=== PATIENT | female | born 1965 | race Caucasian/White ===

== ENCOUNTER → 2019-11-16 09:53 | Outpatient (CLI) | payer BC, SELFPAY ==
[2019-11-16 12:27] LABS: Hematocrit 42.8 % (37-47); Hemoglobin 13.3 g/dL (12.0-15.0); Mean Corp Hgb Conc 31.1 g/dL (32-36); Mean Corpuscular Hgb 28.3 pg (27.0-32.0); Mean Corpuscular Volume 91.1 fL (81-99); Mean Platelet Vol. 9.4 fl (6.2-12.0); Platelet Count 270 K/mm3 (150-450); RBC Distribution Width CV 12.5 % (11.6-14.6); RBC Distribution Width SD 41.9 fl (35.1-43.9); White Blood Count 4.6 K/mm3 (4.4-11.0)
[2019-11-16 12:46] LABS: ALB/GLOB Ratio 1.2 RATIO (0.9-2.4); AST(SGOT) 21 U/L (15-37); Alanine Aminotransfer ALT/SGPT 30 U/L (13-56); Alkaline Phosphatase 88 U/L (45-117); Anion Gap 4 (5-15); BUN 18 mg/dL (7-18); BUN/Creat Ratio 16.7 RATIO (10-20); Calcium,Total 9.1 mg/dL (8.5-10.1); Chloride 106 mmol/L (98-107); Creatinine, Serum 1.08 mg/dL (0.55-1.02); EST Glomerular Filtration Rate 56 mL/min (>60); Est Glom Filt Rate - Afr Amer 67 mL/min (>60); Globulin 3.4 g/dL (2.2-4.2); Glucose 84 mg/dL (74-106); Protein, Total 7.4 g/dL (6.4-8.2); Sodium Level 141 mmol/L (136-145)
[2019-11-16 12:59] LABS: PTHIN 74.8 pg/mL (18.4-80.1)
[2019-11-16 13:00] LABS: Microalbumin,Random Urine 6.2 mg/L (NO RANGE EST.); Microalbumin:Creatinine Ratio 7.3 mg/g CRE (<30 mg/g CRE)
== END ==
PROVIDERS: Visit Provider Internal Medicine Nephrology
DX: N18.3 Chronic kidney disease, stage 3 (moderate) (principal)
CPT/HCPCS: 36415; 80053; 82043; 82570; 83970; 85027

== ENCOUNTER → 2019-11-28 07:32 | Outpatient (CLI) | payer BC, SELFPAY ==
[2019-11-28 08:40] LABS: 24 Hour Urine Protein 102.6 mg/24HR (<150 MG/24HR); 24HR. UA Prot. Total Volume 1350 mL; 24HR. Urine Creatinine 1.65 g/24 HR (0.70-1.90); Urine Protein (24 Hour) 7.6 mg/dL (<11.9)
[2019-11-28 08:51] LABS: Albumin, Serum 3.7 g/dL (3.2-5.0); BUN 24 mg/dL (7-18); BUN/Creat Ratio 16.2 RATIO (10-20); Calcium,Total 8.7 mg/dL (8.5-10.1); Chloride 107 mmol/L (98-107); Creatinine, Serum 1.48 mg/dL (0.55-1.02); EST Glomerular Filtration Rate 39 mL/min (>60); Est Glom Filt Rate - Afr Amer 47 mL/min (>60); Glucose 99 mg/dL (74-106); Potassium 3.8 mmol/L (3.5-5.1); Sodium Level 139 mmol/L (136-145)
== END ==
LOC: LABSPEC 07:36 → LAB 07:46
PROVIDERS: PCP Family Medicine; Referring Provider Internal Medicine Nephrology; Visit Provider Internal Medicine Nephrology
DX: N18.3 Chronic kidney disease, stage 3 (moderate) (principal)
CPT/HCPCS: 80069; 81050; 82570; 84156

== ENCOUNTER 2020-06-28 09:17 | Outpatient (RCR) | payer BC, SELFPAY | END 2020-08-07 23:59 | LOC: IMMUN 09:17 | PROVIDERS: PCP Family Medicine; Referring Provider Family Medicine; Visit Provider Family Medicine | DX: Z23 Encounter for immunization (principal) | CPT/HCPCS: 0001A; 0002A; 91300 ==

== ENCOUNTER 2021-03-19 08:48 | Outpatient (CLI) | payer BC, SELFPAY ==
[2021-03-19 09:28] LABS: Hematocrit 43.9 % (37-47); Hemoglobin 13.6 g/dL (12.0-15.0); Mean Corpuscular Hgb 28.8 pg (27.0-32.0); Mean Platelet Vol. 9.2 fl (6.2-12.0); Platelet Count 286 K/mm3 (150-450); RBC Distribution Width CV 12.5 % (11.6-14.6); Red Blood Count 4.72 M/mm3 (4.2-5.4); White Blood Count 4.9 K/mm3 (4.4-11.0)
[2021-03-19 09:35] LABS: Protein, Urine (Random) 7.9 mg/dL (<11.9); Protein:Creat Ratio 88 mg/g CRE (0-200)
[2021-03-19 09:53] LABS: Albumin, Serum 4.1 g/dL (3.2-5.0); BUN 15 mg/dL (7-18); BUN/Creat Ratio 14.9 RATIO (10-20); Calcium,Total 9.3 mg/dL (8.5-10.1); Chloride 106 mmol/L (98-107); Creatinine, Serum 1.01 mg/dL (0.55-1.02); EST Glomerular Filtration Rate 60 mL/min (>60); Est Glom Filt Rate - Afr Amer 73 mL/min (>60); Glucose 94 mg/dL (74-106); Potassium 4.2 mmol/L (3.5-5.1); Sodium Level 141 mmol/L (136-145)
== END 2021-03-19 23:59 | disposition short-term general hospital (02) ==
LOC: LAB 08:52
PROVIDERS: PCP Family Medicine; Referring Provider Internal Medicine Nephrology; Visit Provider Internal Medicine Nephrology
DX: N18.2 Chronic kidney disease, stage 2 (mild) (principal); Z52.4 Kidney donor
CPT/HCPCS: 36415; 80069; 82570; 84156; 85027

== ENCOUNTER 2024-06-21 23:15 | Emergency (ER) | payer BC, SELFPAY ==
[2024-06-21 23:16] VITALS: BP 177/100; PULSE 82; RESP 18; TEMP 36.6; O2SAT 97; BMI 32.1
--- NOTE | 2024-06-21 23:39 | RAD_ITS ---
PROCEDURE: CHEST PA AND LATERAL 06/21/2024 REASON FOR EXAM: CHEST PAIN TECHNIQUE: Frontal and lateral views of the chest. COMPARISON: None available FINDINGS: The lungs are clear. Pulmonary vascularity appears within limits. No pneumothorax or pleural effusion. The cardiac and mediastinal contours appear within limits. Visualized osseous structures appear within limits. Surgical clips to the left of the spine left upper quadrant. RAD/Chest PA and Lateral IMPRESSION: No evidence of acute disease. Reading Location: [id number]
[2024-06-21] MEDS: Famotidine 200 MG/20 ML MDV 20 MG in 0.9% Normal Saline (Pres. free 8 ML 300 MG IV (23:55)
[2024-06-21] MEDS: Lidocaine 2% Viscous15 ML UDC 15 ML PO (23:56)
[2024-06-21] MEDS: Mag Hydrox/Al Hydrox/Simeth 30 ML UDC PO (23:56)
[2024-06-21] MEDS: 0.9% Normal Saline (1000mL) 1,000 ML 999 ML IV (23:57)
[2024-06-22 00:04] LABS: AST(SGOT) 27 U/L (<=31); Alanine Aminotransfer ALT/SGPT 20 U/L (<=34); Albumin, Serum 4.2 g/dL (3.4-4.8); Alkaline Phosphatase 99 U/L (35-104); Anion Gap 11 (5-15); BUN 17 mg/dL (4-19); BUN/Creat Ratio 15.6 RATIO (10-20); Bilirubin, Direct 0.14 mg/dL (0.00-0.30); Calcium,Total 9.3 mg/dL (7.6-11.0); Carbon Dioxide 24.4 mmol/L (21.0-32.0); Chloride 107 mmol/L (98-108); Creatinine, Serum 1.08 mg/dL (0.70-1.20); EST Glomerular Filtration Rate 59 (>60); Estimated Creatinine Clearance 58.89 ml/min (50-250); Globulin 3.1 g/dL (2.2-4.2); Glucose 107 mg/dL (70-99); Lipase 53 U/L (13-75); Magnesium 2.2 mg/dL (1.5-2.2); Potassium 3.9 mmol/L (3.3-5.1); Protein, Total 7.3 g/dL (5.9-8.4); Sodium Level 142 mmol/L (133-145); Total Bilirubin 0.36 mg/dL (0.00-1.30); Troponin T High Sensitivity 11 ng/L (<=14)
[2024-06-22 00:15] VITALS: BP 169/87; PULSE 62; RESP 14; O2SAT 99
[2024-06-22 00:15] LABS: Absolute Lymphocyte Count 1.33 X10^3/uL (0.83-4.51); Absolute Neutrophil Count 4.7 X10^3/uL (2.0-7.7); Basophil# 0.04 X10^3/uL; Basophil% 0.6 % (0-1); Eosinophil# 0.22 X10^3/uL; Eosinophils% 3.3 % (0-5); Hematocrit 46.2 % (37-47); Hemoglobin 15.2 g/dL (12.0-15.0); Lymphocyte # 1.33 X10^3/ul (0.83-4.51); Mean Corp Hgb Conc 32.9 g/dL (32-36); Mean Corpuscular Hgb 29.7 pg (27.0-32.0); Mean Corpuscular Volume 90.4 fL (81-99); Mean Platelet Vol. 9.2 fl (6.2-12.0); Monocyte# 0.34 X10^3/uL; Monocyte% 5.1 % (0-10); NRBC Flagged by Analyzer 0 % (0-5); Neutrophil % 70.8 % (47-70); Platelet Count 243 K/mm3 (150-450); RBC Distribution Width CV 12.9 % (11.6-14.6); RBC Distribution Width SD 43.2 fl (35.1-43.9); Red Blood Count 5.11 M/mm3 (4.2-5.4); White Blood Count 6.6 K/mm3 (4.4-11.0)
[2024-06-22 01:00] VITALS: BP 134/82; PULSE 62; RESP 14
[2024-06-22 02:00] VITALS: BP 141/76; PULSE 59; RESP 11; O2SAT 98
[2024-06-22 02:17] LABS: Troponin T High Sens 2 HR 14 ng/L (<=14)
--- NOTE | 2024-06-22 02:34 | EDS_ITS ---
HPI History of Present Illness Chief Complaint: Chest Pain Informant: patient and spouse/S.O. Narrative Narrative: Patient is a 58-year-old female who reports past medical history of GERD. She states that for the last few days she been eating foods that she does not normally do because of the and also states she forgot to take her acid reflux medication. She states around 630 this evening while she was at dinner she developed upper abdominal/lower chest pain. She states that the pain was more of a burning sensation but then radiated up into her chest and was described as pressure. She states with this she felt dizzy and slightly short of breath. She reports symptoms did spontaneously improve but she had concerned that it could have been a cardiac event and not due to her acid reflux as symptoms did not resolve shortly after taking her normal medication. Therefore with concern for cardiac event she presents for evaluation [facility] Allergy/AdvReac Type Severity Reaction Status Date / Time aspirin Allergy Shortness Verified 06/21/24 23:16 of breath nut - unspecified (nuts) Allergy Abd Verified 06/21/24 23:16 cramps/diarrhea Social History Smoking Status: Never smoker ROS ROS ED Constitutional Constitutional ED: Denies chills or fever(s) Eyes Eyes: Denies change in vision ENT ENT ED: Denies sore throat Cardiovascular Cardiovascular: Reports chest pain and palpitations; Denies racing heartbeat Respiratory/Chest Respiratory/Chest: Denies cough or dyspnea Gastrointestinal Gastrointestinal: Reports abdominal pain and nausea; Denies diarrhea or vomiting Genitourinary Genitourinary ED: Denies dysuria Musculoskeletal Musculoskeletal: Denies back pain Integumentary Denies rash Neurologic Neurologic: Denies headache(s) Hematologic/Lymphatic Hematologic/Lymphatic: Denies easy bleeding or easy bruising EXAM Physical Exam Const Vital Signs: 06/21/24 23:16 06/21/24 23:37 06/22/24 00:15 Temperature 97.9 F Temperature Source Temporal Pulse Rate 82 62 Respiratory Rate 18 14 Respiratory Effort Normal Blood Pressure 177/100 H 169/87 H Blood Pressure Mean 125 114 Pulse Ox 97 99 Oxygen Delivery Method Room Air Room Air 06/22/24 01:00 06/22/24 02:00 06/22/24 02:40 Temperature 98.3 F Temperature Source Pulse Rate 62 59 L 62 Respiratory Rate 14 11 L 12 Respiratory Effort Blood Pressure 134/82 H 141/76 H 141/76 H Blood Pressure Mean 99 97 97 Pulse Ox 98 100 Oxygen Delivery Method Room Air Room Air Positive well nourished and well developed General Appearance ED: well developed; Negative for pallor HEENT HEENT Narrative: Normocephalic atraumatic Eyes PERRL and EOMs intact bilaterally General Eye ED: Negative for scleral icterus Neck supple and no JVD Neck Narrative: No nuchal rigidity or meningeal signs Chest Wall palpation of chest normal Chest Narrative: No bony deformity or subcutaneous emphysema noted No reproducible pain with palpation Resp normal respiratory effort and clear to auscultation bilaterally Cardio regular rate and regular rhythm Rate: other Other Details: Heart is regular rate and rhythm with occasional ectopic beat noted Radial and carotid pulses are equal and symmetric GI non-distended and no masses GI Narrative: Abdomen is soft and nondistended with normal active bowel sounds. Patient has mild pain with palpation in the midepigastric region without voluntary guarding or rigidity or pulsatile mass. Negative Morales sign. Auscultation: normoactive bowel sounds Palpation: soft Extremity normal to inspection Extremity Narrative: No asymmetric edema no pitting edema negative Homans' sign bilaterally Neuro oriented x3, CN's II-XII intact bilaterally and no sensory deficits noted Sensorium / Orientation: alert Motor Exam: strength 5/5 throughout Psych mental status grossly normal Skin no rashes or lesions noted General Skin Exam: Negative for jaundice or pallor MDM MDM MDM Narrative Medical decision making narrative: Patient arrived to the ER hypertensive otherwise with stable vitals. She reported upper abdominal/lower chest discomfort around 630 this evening which has spontaneously improved. Differential diagnosis is for ACS versus cardiac dysrhythmia versus pancreatitis versus biliary colic versus acute cholecystitis versus gastritis. EKG was obtained secondary to concern for ACS and revealed an occasional PVC but otherwise no signs of ischemia or cardiac dysrhythmia. Chest x-ray revealed no acute lung pathology. Initial troponin was 11 delta increased by 3-14 which is not clinically significant and classifies as a rule out criteria. Further blood work revealed no signs of pancreatitis as her lipase was normal and concern for biliary colic/acute cholecystitis is no as liver enzymes are normal and she does not have leukocytosis. On reevaluation she has had resolution of her symptoms and is pain-free. Therefore at this time with negative cardiac enzymes and EKG showing no ischemic changes as well as improvement of symptoms I do not feel there is need for further evaluation in the ER and she is otherwise safe for discharge History & Record Review Discussion w/independent historian: Patient and Significant other Lab Data Attestation: I reviewed the patient's lab results. Labs: Laboratory Results - last 24 hr 06/21/24 06/22/24 23:28 01:51 WBC 6.6 RBC 5.11 Hgb 15.2 H Hct 46.2 MCV 90.4 MCH 29.7 MCHC 32.9 RDW Std Deviation 43.2 RDW Coeff of Meredith 12.9 Plt Count 243 MPV 9.2 Immature Gran % (Auto) 0.200 Neut % (Auto) 70.8 H Lymph % (Auto) 20.0 [place] % (Auto) 5.1 Eos % (Auto) 3.3 Baso % (Auto) 0.6 Absolute Neuts (auto) 4.7 Absolute Lymphs (auto) 1.33 Nucleated RBC % 0 Sodium 142 Potassium 3.9 Chloride 107 Carbon Dioxide 24.4 Anion Gap 11 BUN 17 Creatinine 1.08 Estim Creat Clear Calc 58.89 Est GFR (MDRD) Non-Af 59 L BUN/Creatinine Ratio 15.6 Glucose 107 H Calcium 9.3 Magnesium 2.2 Total Bilirubin 0.36 Direct Bilirubin 0.14 AST 27 ALT 20 Alkaline Phosphatase 99 Troponin T High Sens 11 Troponin T Hi Sens 2 Hr 14 Total Protein 7.3 Albumin 4.2 Globulin 3.1 Lipase 53 Radiography Diagnostic Testing: Clinical Impression(s) from Imaging Studies Chest X-Ray 06/21/24 23:39 IMPRESSION: No evidence of acute disease. Reading Location: [facility] Chest x-ray as interpreted by the emergency medicine physician reveals no acute infiltrate pneumothorax pleural effusion or widening the mediastinum Discharge Plan Triage Chief Complaint: Chest Pain ED Provider: Rivera Green Dx/Rx/DC Orders Clinical Impression: Nonspecific chest pain, PVC (premature ventricular contraction), GERD (gastroesophageal reflux disease) Instructions: ED Chest Pain, Uncertain Cause Primary Care Provider: Alvaro Aguayo Referrals: Alvaro Aguayo MD [Primary Care Provider] - Activity Restrictions/Additional Instructions: Your workup today showed no signs of active heart damage or abnormal heart rhythm. Please follow-up with your family doctor to discuss further testing and return to the ER should you have any further concerns or worsening of symptoms. Print Language: Portuguese Disposition Disposition: Home, Self Care Discharge Date/Time: 06/22/24 02:41
[2024-06-22 02:40] VITALS: BP 141/76; PULSE 62; RESP 12; TEMP 36.8; O2SAT 100
== END 2024-06-22 02:41 | disposition home or self-care (01) ==
PROVIDERS: Emergency Provider Emergency Medicine; PCP Family Medicine; Visit Provider Emergency Medicine
DX: R07.89 Other chest pain (principal); K21.9 Gastro-esophageal reflux disease without esophagitis; I49.3 Ventricular premature depolarization
CPT/HCPCS: 71046; 80048; 80076; 83690; 83735; 84484; 85025; 93005; 96361; 96374; 99284; A4216